=== PATIENT | male | born 1955 | race Caucasian/White ===

== ENCOUNTER 2016-04-13 06:47 | Emergency (ER) | payer OTHER ==
[~2016-04-13] VITALS: Ht 170.2 cm; Wt 66.7 kg
--- NOTE | 2016-04-13 07:23 | ED GI/GU/ABDOMINAL COMPLAINT ---
History of Present Illness General Chief Complaint: Nausea, Vomiting, Diarrhea Stated Complaint: NVD Source: patient, old records Exam Limitations: no limitations Vital Signs & Intake/Output Vital Signs & Intake/Output Vital Signs Date Time Temp Pulse Resp B/P Pulse O2 O2 Flow FiO2 Ox Delivery Rate 04/13 1127 96.4 73 18 111/61 98 Room Air 04/13 0653 96.5 82 18 116/63 96 Room Air Allergies Coded Allergies: No Known Allergies (04/13/16) Triage Note: PT BIBA FROM HOME. N/V/D SINCE 4AM. PT STATES "I MUST HAVE THREW UP A DOZEN TIMES, EVERYTIME I VOMMIT POOP SHOOTS OUT." PT ALSO COMPLAINS OF ABD PAIN. Triage Nurses Notes Reviewed? yes Onset: Just prior to arrival Duration: hour(s):, continues in ED Timing: recent history Quality/Severity: aching, cramping, mild, vomiting Location: generalized abdomen Radiation: no radiation Activities at Onset: sleep Prior Abdominal Problems: none Past Sexual History: Unobtainable at this time Modifying Factors: Worsens With: eating. Associated Symptoms: loss of appetite, nausea/vomiting HPI: Several hours prior to admission patient awoke with nausea vomiting frequent loose watery stools generalized weakness. Denies fever chills abdominal pain chest pain cough shortness of breath headache dysuria rash bleeding ill contact. He reports one episode of collapsing after vomiting and passing large volume watery stool. Past History Travel History Traveled to [place] past 21 day No Medical History Any Pertinent Medical History? see below for history Cardiovascular: hypertension Respiratory: pulmonary embolism Endocrine: diabetes Surgical History Surgical History: non-contributory Psychosocial History What is your primary language Urdu Tobacco Use: Never used ETOH Use: denies use Family History Hx Contributory? No Review of Systems Review of Systems Constitutional: Reports: see HPI, malaise. EENTM: Reports: no symptoms. Respiratory: Reports: no symptoms. Cardiovascular: Reports: no symptoms. GI: Reports: see HPI, abdominal pain, diarrhea, nausea, vomiting. Genitourinary: Reports: no symptoms. Musculoskeletal: Reports: no symptoms. Skin: Reports: no symptoms. Neurological/Psychological: Reports: no symptoms. Hematologic/Endocrine: Reports: no symptoms. Immunologic/Allergic: Reports: no symptoms. All Other Systems: Reviewed and Negative Physical Exam Physical Exam General Appearance: well developed/nourished, alert, awake, anxious, severe distress, thin Head: atraumatic, normal appearance Eyes: Bilateral: normal appearance, PERRL, EOMI. Ears, Nose, Throat, Mouth: hearing grossly normal, dry mucous membranes Neck: normal inspection, supple, full range of motion, normal alignment Respiratory: normal breath sounds, chest non-tender, no respiratory distress, quiet respiration, lungs clear Cardiovascular: regular rate/rhythm, normal peripheral pulses, norml femoral pulses equa Peripheral Pulses: 4+ carotid (R), 4+ carotid (L), 2+ radial (R), 2+ radial (L) Gastrointestinal: soft, non-tender, no organomegaly, abnormal bowel sounds Male Genitals: normal genitalia Back: normal inspection, normal range of motion Extremities: normal range of motion, no ligament instability Neurologic/Psych: no motor/sensory deficits, awake, alert, oriented x 3, normal gait, normal mood/affect, 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 No Severe Sepsis Present: No Septic Shock Present: No Progress Differential Diagnosis: gastritis, pancreatitis, PUD/GERD, SBO Plan of Care: Orders Procedure Date/time Status RAPID VIRAL INFLUENZA A 04/13 0750 Complete TROPONIN LEVEL 04/13 0750 Complete PROTHROMBIN TIME 04/13 0750 Complete MAGNESIUM 04/13 0750 Complete LIPASE 04/13 0750 Complete COMPREHENSIVE METABOLIC PANEL 04/13 0750 Complete CBC WITHOUT DIFFERENTIAL 04/13 0750 Complete EKG 04/13 0750 Active Laboratory Tests 04/13/16 0830: Anion Gap 10, Estimated GFR 31 L, BUN/Creatinine Ratio 20.9, Glucose 221 H, Calcium 9.6, Magnesium 2.0, Total Bilirubin 0.6, AST 25, ALT 40, Alkaline Phosphatase 53, Troponin I < 0.01, Total Protein 6.3, Albumin 4.0, Globulin 2.3, Albumin/Globulin Ratio 1.7, Lipase 61, PT 24.8 H, INR 2.38 H, CBC w Diff MAN DIFF ORDERED, RBC 4.06 L, MCV 85.6, MCH 29.2, RDW 15.4 H, MPV 9.1, Gran % 87.5 H, Lymphocytes % 2.8 L, Monocytes % 9.4 H, Eosinophils % 0.3, Basophils % 0 L, Absolute Granulocytes 8.1 H, Segmented Neutrophils 67, Band Neutrophils 16 H, Absolute Lymphocytes 0.3 L, Lymphocytes 3 L, Monocytes 9, Absolute Monocytes 0.9 H, Eosinophils 2, Absolute Eosinophils 0, Absolute Basophils 0, Metamyelocytes 3 H, Platelet Estimate ADEQUATE, Normochromic RBCs VERIFIED, [place] Cells 1+, PUBS MCHC 34.1, Fld Total RBCs Counted 100 Diagnostic Imaging: Viewed by Me: Radiology Read. Discussed w/RAD: Radiology Read. Radiology Impression: no acute abnormality CXR Impression: no acute abnormality Initial ED EKG: normal axis, normal intervals, normal p-waves, normal QRS complex, normal sinus rhythm, no ST T wave changes Rhythm Strip: normal sinus rhythm Departure Departure Time of Disposition: 1238 Disposition: HOME OR SELF CARE Condition: Stable Clinical Impression Primary Impression: Nausea, vomiting and diarrhea Secondary Impressions: Chronic renal insufficiency Qualifiers: Chronic kidney disease stage: unspecified stage Qualified Code: N18.9 - Chronic kidney disease, unspecified Dehydration syndrome Referrals: BETSY STEEL,KEL Sullivan (PCP/Family) Additional Instructions: Clear liquid diet for 12-24 hours. Departure Forms: Customer Survey General Discharge Information Prescriptions: Current Visit Scripts Loperamide HCl (Imodium A-D) 0 PO SEE ADMIN CRITERIA PRN diarrhea #24 TAB 1 tab after each loose stool up to 7 per day Ondansetron (Zofran Odt) 1 TAB SL TID PRN nausea #15 TAB Hyoscyamine Sulfate (Levsin-Sl) 1-2 TAB SL Q4P PRN abd discomfort, diarrhea #30 TAB
--- NOTE | 2016-04-13 08:27 | RADIOLOGY REPORT ---
EXAMINATION: XR ABDOMEN WITH PA CHEST CLINICAL INDICATION: Nausea/vomiting/diarrhea, cough COMPARISON: None. TECHNIQUE: AP semiupright chest. AP supine and upright radiographs of the abdomen. FINDINGS: No intra-abdominal free air is seen. The bowel gas pattern is nonobstructive. No renal calculi are identified. Lung volumes are symmetric. No focal consolidation is seen. No evidence of pneumothorax, pleural effusion, or pulmonary edema. Cardiac size is within normal limits. Calcification is present at the aortic arch. No acute osseous findings are seen. IMPRESSION: No acute findings identified in the chest or abdomen.
[2016-04-13 08:45] LABS: PT 24.8 SEC (9.4-12.5)
[2016-04-13 08:55] LABS: ABSOLUTE BASOPHIL COUNT 0 /CUMM (0.0-0.2); ABSOLUTE EOSINOPHIL COUNT 0 /CUMM (0.0-0.7); ABSOLUTE GRANULOCYTE CT 8.1 /CUMM (1.4-6.5); ABSOLUTE LYMPH COUNT 0.3 /CUMM (1.2-3.4); ABSOLUTE MONOCYTE COUNT 0.9 /CUMM (0.10-0.60); BASOPHIL % 0 % (0.0-2.0); EOSINOPHIL % 0.3 % (0-5); HEMATOCRIT 34.8 % (42-52); MEAN CORPUSCULAR HGB 29.2 PG (27.0-31.0); MEAN CORPUSCULAR HGB CONC 34.1 G/DL (33.0-37.0); MEAN CORPUSCULAR VOLUME 85.6 FL (80.0-94.0); MEAN PLATELET VOLUME 9.1 FL (7.4-10.4); PLATELET COUNT 245 /CUMM (130-400); RBC DISTRIBUTION WIDTH 15.4 % (11.5-14.5); RED BLOOD CELL CT 4.06 /CUMM (4.70-6.10); WHITE BLOOD CELL COUNT 9.3 /CUMM (4.8-10.8)
[2016-04-13 08:57] LABS: GRANULOCYTE % 87.5 % (42.2-75.2)
[2016-04-13] MEDS ORDERED: IMODIUM A-D2 M1 PO (12:50)
[2016-04-13] MEDS ORDERED: LEVSIN-SL0.125 MG SL (12:50)
[2016-04-13] MEDS ORDERED: ZOFRAN ODT4 M1 SL (12:50)
[2016-04-13 14:04] VITALS: BP 122/66
== END 2016-04-13 14:06 ==
LOC: ERH 06:47
PROVIDERS: Emergency Medicine
DX: R11.2 Nausea with vomiting, unspecified (principal); R19.7 Diarrhea, unspecified; N18.9 Chronic kidney disease, unspecified; E86.0 Dehydration; I10 Essential (primary) hypertension
CPT/HCPCS: 74022; 87804; 87804-59; 93005; 93010; 96361; 96374; 96376; J2405